=== PATIENT | female | born 1950 | race Caucasian/White ===

== ENCOUNTER → 2016-09-20 | Outpatient (CLI) | payer OTHER, BC ==
[~2016-09-20] MED LIST: CALC-354 PO; HYZ/10015 PO; MISCCAP52 PO; MONT1TAB3 PO; MULT-506 PO; OMEGCAP2 PO; RIVA1TAB4 PO; [UNRECOGNIZED DRUG - CODE] PO
--- NOTE | 2016-09-20 13:07 | DIAGNOSTIC IMAGING REPORT ---
LEFT FINGER(S) MIN 2 VIEWS CLINICAL HISTORY: CLOSED FX OF LEFT 3RD FINGER fracture COMPARISON: None. DISCUSSION: Fracture base middle phalanx third finger. Moderate soft tissue edema. Partial dorsal subluxation. IMPRESSION: Healing fracture base middle phalanx. Partial dorsal subluxation. Mild soft tissue edema. Electronically signed by: Rizwan Skinner M.D. 09/20/2016 1:06 PM Dictated Date/Time: 09/20/2016 1:03 PM
== END | disposition home or self-care (01) ==
LOC: C.RDSM 09:30
PROVIDERS: ATTEND Internal Medicine
DX: S62.623D Displaced fracture of middle phalanx of left middle finger, subsequent encounter for fracture with routine healing (principal); X58.XXXD Exposure to other specified factors, subsequent encounter

== ENCOUNTER → 2016-09-28 | Outpatient (CLI) | payer OTHER, BC ==
--- NOTE | 2016-09-28 13:38 | DIAGNOSTIC IMAGING REPORT ---
LEFT THIRD FINGER 3 VIEWS CLINICAL HISTORY: Fracture COMPARISON: 09/20/2016 DISCUSSION: There is an intra-articular fracture involving the base of the middle phalanx. There is mild dorsal subluxation of the middle phalanx with respect the proximal phalanx. IMPRESSION: Healing intra-articular fracture involving the base of the middle phalanx. There is persistent mild dorsal subluxation. Electronically signed by: Lionel Harrington M.D. 09/28/2016 1:37 PM Dictated Date/Time: 09/28/2016 1:35 PM
== END | disposition home or self-care (01) ==
LOC: C.RDSM 09:15
PROVIDERS: ATTEND Internal Medicine
DX: S62.609A Fracture of unspecified phalanx of unspecified finger, initial encounter for closed fracture (principal); X58.XXXA Exposure to other specified factors, initial encounter

== ENCOUNTER → 2017-03-22 | Outpatient (CLI) | payer OTHER, BC ==
--- NOTE | 2017-03-22 07:58 | MAMMOGRAPHY REPORT ---
BILATERAL DIGITAL SCREENING MAMMOGRAM WITH CAD: 03/22/2017 CLINICAL HISTORY: Routine screening. TECHNIQUE: Current study was also evaluated with a Computer Aided Detection (CAD) system. Bilateral CC and MLO views were obtained. COMPARISON: Comparison is made to exams dated: 12/30/2015 mammogram, 12/09/2014 mammogram, 10/23/2013 ma mmogram - [facility], 07/10/2012 mammogram, and 05/03/2010 mammogram. BREAST COMPOSITION: The tissue of both breasts is heterogeneously dense, which may obscure small mas ses. FINDINGS: No suspicious masses, calcifications, or areas of architectural distortion are noted in ei ther breast. There has been no significant interval change compared to prior exams. Scattered bilater al benign-appearing calcifications are not significantly changed. A linear scar marker denotes a sca r on the right anterior breast. IMPRESSION: ACR BI-RADS CATEGORY 2: BENIGN There is no mammographic evidence of malignancy. A 1 year screening mammogram is recommended. The pa tient will receive written notification of the results. Approximately 10% of breast cancers are not detected with mammography. A negative mammographic report should not delay biopsy if a clinically suggestive mass is present. Thelma Guillermo M.D. /:03/22/2017 07:44:27 Interactive Web Developer: Carol TELLO(R)(Cory), [facility] letter sent: Normal 1/2 BI-RADS Code: ACR BI-RADS Category 2: Benign
== END | disposition home or self-care (01) ==
LOC: C.MAMM 07:10
PROVIDERS: ATTEND Family Medicine
DX: Z12.31 Encounter for screening mammogram for malignant neoplasm of breast (principal)

== ENCOUNTER → 2017-04-28 | Outpatient (CLI) | payer OTHER, BC ==
--- NOTE | 2017-04-28 09:35 | DIAGNOSTIC IMAGING REPORT ---
CHEST 2 VIEWS ROUTINE CLINICAL HISTORY: Preoperative chest COMPARISON STUDY: 10/02/2014 FINDINGS: The cardiac and mediastinal contours remain stable. There is no failure. There is no focal pulmonary consolidation. 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 There are minor left basilar atelectatic changes.[ IMPRESSION: No active disease in the chest. Electronically signed by: Lionel Harrington M.D. 04/28/2017 9:34 AM Dictated Date/Time: 04/28/2017 9:33 AM
== END | disposition home or self-care (01) ==
LOC: C.RAD 09:13
PROVIDERS: ATTEND Orthopaedic Surgery Hand Surgery
DX: M25.642 Stiffness of left hand, not elsewhere classified (principal)